=== PATIENT | female | born 1970 | race Caucasian/White ===

== ENCOUNTER 2023-02-21 12:33 | Emergency (ER) | payer BC, OTHER ==
[~2023-02-21] VITALS: Ht 175.3 cm; Wt 94.5 kg
[2023-02-21] MEDS ORDERED: AMOX875T2 PO (12:54)
[2023-02-21 14:27] LABS: BASO % 0.6 % (0.0-1.0); EOS % 0.6 % (0.0-3.0); HEMATOCRIT 42.3 % (36.0-47.0); HEMOGLOBIN 14.3 g/dl (12.0-15.5); LYMPH # 1.3 10^3/uL (1.5-5.0); LYMPH % 18.5 % (24.0-44.0); MEAN CORPUSCULAR HEMOGLOBIN 30.6 pg (27.0-33.0); MEAN CORPUSCULAR HGB CONC 33.8 g/dl (32.0-36.5); MEAN CORPUSCULAR VOLUME 90.4 fl (80.0-96.0); MONO # 0.4 10^3/uL (0.0-0.8); NEUTROPHILS # 5.3 10^3/uL (1.5-8.5); PLATELET COUNT, AUTOMATED 258 10^3/uL (150-450); RED BLOOD COUNT 4.68 10^6/uL (4.00-5.40)
[2023-02-21 14:41] LABS: BLOOD UREA NITROGEN 16 MG/DL (9-23); CALCIUM LEVEL 9.8 MG/DL (8.5-10.1); CARBON DIOXIDE LEVEL 28 MMOL/L (20-31); CHLORIDE LEVEL 104 MMOL/L (98-107); CREATININE FOR GFR 0.61 MG/DL (0.55-1.30); GLOMERULAR FILTRATION RATE > 60.0 (>51); GLUCOSE, FASTING 125 MG/DL (60-100); POTASSIUM SERUM 3.8 MMOL/L (3.5-5.1); SODIUM LEVEL 141 MMOL/L (136-145)
[2023-02-21 14:43] LABS: THYROID STIMULATING HORMONE 0.719 uIU/ML (0.55-4.78)
[2023-02-21] MEDS ORDERED: MECL1TAB31 PO (15:32)
[2023-02-21] MEDS ORDERED: ONDA4TAB6 PO (15:32)
[2023-02-21 16:01] VITALS: BP 188/120; TEMP 98.4; O2SAT 100
== END 2023-02-21 16:17 | disposition home or self-care (01) ==
LOC: M ED 12:33
DX: R11.2 Nausea with vomiting, unspecified (principal); H81.4 Vertigo of central origin